=== PATIENT | male | born 1985 | race American Indian/Alaskan Native ===

== ENCOUNTER 2021-12-31 19:57 | Emergency (ER) | payer SELFPAY ==
[2021-12-31 20:07] VITALS: BP 118/79
== END 2022-01-01 02:59 | disposition left against medical advice (07) ==
LOC: ED 19:57
DX: K08.89 Other specified disorders of teeth and supporting structures (principal); Z53.21 Procedure and treatment not carried out due to patient leaving prior to being seen by health care provider

== ENCOUNTER 2022-01-17 03:09 | Emergency (ER) | payer SELFPAY | END 2022-01-17 07:01 | disposition left against medical advice (07) | LOC: ED 03:09 | DX: Z00.00 Encounter for general adult medical examination without abnormal findings (principal); Z53.21 Procedure and treatment not carried out due to patient leaving prior to being seen by health care provider ==